=== PATIENT | female | born 1975 | race Caucasian/White ===

== ENCOUNTER 2023-05-22 15:25 | Outpatient (CLI) | payer BC, SELFPAY ==
--- NOTE | ~2023-05-22 | MR_ITS ---
EXAMINATION: MR knee LT wo con DATE: 05/22/2023 16:05 INDICATION: Acute medial meniscal tear at the left knee presenting with 2 months of left knee pain an d swelling post fall TECHNIQUE: Magnetic resonance imaging (MRI) of the left knee was performed without intravenous contra st. Sequences included coronal PD-weighted FSE, coronal PD-weighted FS FSE, sagittal T2-weighted FSE , sagittal PD-weighted FS FSE and axial PD weighted fat saturated FSE. COMPARISON: None. FINDINGS: Medial compartment: Medial meniscus is normal. Articular cartilage is normal. Lateral compartment: Lateral meniscus is normal. Articular cartilage is normal. Patellofemoral compartment: Large region of full/near full-thickness chondral ulceration with underlying cortical irregularity an d developing cystlike changes extending across the central aspect of the medial and lateral patellar facets and intervening apical ridge. Trochlear cartilage appears relatively preserved. Ligaments and tendons: Anterior and posterior cruciate ligaments are normal. The medial collateral ligament and fibular trae ateral ligament complex are normal. The extensor mechanism is normal. The visualized medial and later al hamstring tendons as well as the iliotibial band are normal. Fluid: Physiologic amount of fluid in the joint space. No loose osteochondral bodies identified. Osseous/other: Bone alignment is normal. Small bone island at the lateral femoral condyle. No fracture or pathologic marrow replacing process. Minimal edema in the infrapatellar fat pad along the inferolateral margin of the patella which could be seen with fat pad impingement syndrome. IMPRESSION: 1. Extensive high-grade patellar chondromalacia. 2. Normal stabilizing ligaments of the knee, menisci and femoral and tibial cartilage. Reviewed, dictated and finalized at location A. [employer] IMPRESSION: 1. Extensive high-grade patellar chondromalacia. 2. Normal stabilizing ligaments of the knee, menisci and femoral and tibial car tilage.
== END 2023-05-22 15:26 ==
PROVIDERS: PCP Nurse Practitioner Family; Visit Provider Physician Assistant
DX: S83.242A Other tear of medial meniscus, current injury, left knee, initial encounter (principal); X58.XXXA Exposure to other specified factors, initial encounter
CPT/HCPCS: 73721

== ENCOUNTER → 2023-07-16 12:59 | Outpatient (CLI) | payer BC, SELFPAY ==
--- NOTE | ~2023-07-16 | MR_ITS ---
MRI of the left ankle Clinical history: Anterior talofibular ligament sprain Technique: Coronal proton-density and proton-density fat-sat images, axial proton-density and proton- density fat-sat images, and sagittal proton-density and proton-density fat-sat images were acquired. Findings: Syndesmotic ligaments are intact. Posterior talofibular ligament, and calcaneofibular ligam ent are intact. There is thinning of the anterior talofibular ligament. Deltoid ligament is intact. Medial flexor tendons, peroneal tendons, anterior extensor tendons, and Achilles tendon are intact. There is focal high-grade chondromalacia with subchondral cystic change at the medial corner of the t alar dome, compatible with developing osteochondral lesion. There is amorphous marrow edema at the la teral cuboid. Remaining bone marrow signals are unremarkable. No significant joint effusion. Plantar fascia intact. Normal signal preserved in the sinus Tarsi. No soft tissue mass or fluid colle ction evident. Impression: Osteochondral lesion of the medial corner of the talar dome. Thinning of the anterior talofibular ligaments suggests sequelae of chronic sprain. Amorphous marrow edema lateral cuboid. Correlate for bone contusion versus reactive marrow edema to u nderlying focal degenerative change at the calcaneocuboid joint. Reviewed, dictated and finalized at location M. [employer] ENGINEER Impression: Osteochondral lesion of the medial corner of the talar dome. Thinning of the anterior talofibular ligaments suggests sequelae of chronic spr ain. Amorphous marrow edema lateral cuboid. Correlate for bone contusion versus reac tive marrow edema to underlying focal degenerative change at the calcaneocuboid joint.
== END ==
PROVIDERS: PCP Physician Assistant; Visit Provider Physician Assistant
DX: S93.492D Sprain of other ligament of left ankle, subsequent encounter (principal); M25.372 Other instability, left ankle; M22.42 Chondromalacia patellae, left knee; M25.473 Effusion, unspecified ankle; M25.476 Effusion, unspecified foot; X58.XXXD Exposure to other specified factors, subsequent encounter
CPT/HCPCS: 73721